=== PATIENT | male | born 1995 | race Caucasian/White ===

== ENCOUNTER 2018-08-06 20:31 | Emergency (ER) | payer SELFPAY ==
[~2018-08-06] VITALS: Ht 157.5 cm; Wt 64.9 kg
[2018-08-06 20:40] VITALS: Ht 157.5 cm; Wt 64.9 kg
[2018-08-06 21:14] VITALS: BP 123/81
== END 2018-08-06 21:14 | disposition home or self-care (01) ==
LOC: ED 20:31
DX: H00.014 Hordeolum externum left upper eyelid (principal); Z98.890 Other specified postprocedural states